=== PATIENT | female | born 1965 | race Hispanic/Latino ===

== ENCOUNTER 2023-01-06 07:41 | Outpatient (CLI) | payer OTHER | END 2023-01-06 07:42 | disposition home or self-care (01) | LOC: BICMAMMO 07:41 | PROVIDERS: ATTEND Nurse Practitioner Family | DX: N63.10 Unspecified lump in the right breast, unspecified quadrant (principal) ==

== ENCOUNTER 2023-01-12 12:44 | Outpatient (CLI) | payer OTHER | END 2023-01-12 12:45 | disposition home or self-care (01) | LOC: CT 12:44 | PROVIDERS: ATTEND Nurse Practitioner Family | DX: N28.89 Other specified disorders of kidney and ureter (principal) | CPT/HCPCS: 74176 ==

== ENCOUNTER 2023-03-17 09:06 | Outpatient (CLI) | payer OTHER | END 2023-03-17 09:07 | disposition home or self-care (01) | LOC: CT 09:06 | PROVIDERS: ATTEND Family Medicine | DX: N28.89 Other specified disorders of kidney and ureter (principal); K44.9 Diaphragmatic hernia without obstruction or gangrene; Z90.49 Acquired absence of other specified parts of digestive tract; K59.00 Constipation, unspecified; Z90.710 Acquired absence of both cervix and uterus | CPT/HCPCS: 74178 ==